=== PATIENT | male | born 1975 | race Caucasian/White ===

== ENCOUNTER 2023-01-22 21:02 | Observation (INO) | payer MEDICARE ==
[~2023-01-22 21:02] MED LIST: Iopamidol 370 76% 100 ML VIAL ONE
[2023-01-22 21:46] LABS: #Basophils 0.1 10x3/uL (0.0-0.2); #Eosinphils 0.2 10x3/uL (0.0-0.5); #Monocytes 0.7 10x3/uL (0.0-1.1); #Neutrophils 7.9 10x3/uL (1.5-8.4); %Basophils 0.7 % (0.0-2.0); %Eosinophils 1.5 % (0.0-6.0); %Lymphocytes 25.8 % (18.0-47.0); %Neutrophils 65.7 % (40.0-75.0); Hemoglobin 14.4 g/dL (13.5-17.5); Mean Corpuscular Hemoglobin 32.3 pg (27.0-33.0); Mean Corpuscular Volume 92.2 fl (81.2-95.1); Mean Platelet Volume 9.4 fl (7.4-10.4); Platelet Count 253 10x3/uL (150-450); RBC Distribution Width 13.2 % (11.5-14.5); Red Blood Cell (RBC) Count 4.46 10x6/uL (4.32-5.72)
[2023-01-22 21:59] LABS: ALT (SGPT) 43 U/L (8-55); AST (SGOT) 34 U/L (5-34); Albumin 4.9 g/dL (3.5-5.0); Alkaline Phosphatase 69 U/L (40-110); Anion Gap 17 mmol/L (10-20); BUN (Urea Nitrogen) 14 mg/dL (8.9-20.6); Bilirubin, Total 0.8 mg/dL (0.2-1.2); Calc. Creatinine Clearance 0 mL/min (70-130); Calcium 9.2 mg/dL (7.8-10.44); Carbon Dioxide 21 mmol/L (22-29); Chloride 105 mmol/L (98-107); Estimated GFR 85; Globulin 2.5 g/dL (2.4-3.5); Glucose 143 mg/dL (70-105); Protein, Total 7.4 g/dL (6.0-8.3); Sodium 139 mmol/L (136-145)
[2023-01-22] MEDS ORDERED: Morphine 4 MG/ML VIAL ONE (22:55)
[2023-01-22] MEDS ORDERED: Aspirin Chewable 81 MG TAB ONE (22:56)
[2023-01-22] MEDS ORDERED: Nitroglycerin 2% Ointment 1 INCH/1 GM Packet ONE (22:57)
[2023-01-23] MEDS ORDERED: Nitroglycerin 0.4 MG TAB (25 Tab Bottle) SL PRN (01:56)
[2023-01-23 02:43] LABS: Troponin I 0.016 ng/mL (< 0.028)
[2023-01-23 03:34] VITALS: BMI 27.1
[2023-01-23] MEDS ORDERED: Nitroglycerin 2% Ointment 1 INCH/1 GM Packet TOP SCH (06:00)
[2023-01-23] MEDS ORDERED: Aspirin 81 mg Enteric Coated Tablet ONE (08:20)
[2023-01-23] MEDS ORDERED: Cyclobenzaprine 10 MG TAB PO PRN (08:49)
[2023-01-23] MEDS ORDERED: Cyclobenzaprine 10 MG TAB ONE (08:56)
[2023-01-23] MEDS ORDERED: Aspirin Chewable 81 MG TAB PO SCH (09:00)
[2023-01-23] MEDS ORDERED: Cyclobenzaprine 10 MG TAB PO SCH (09:00)
[2023-01-23 09:20] VITALS: BP 99/75; TEMP 97.9
== END 2023-01-23 15:00 | disposition home or self-care (01) ==
LOC: CSHERS 21:02 → INTOOBSV 01-23 01:24 → CSHERHOLD 01-23 01:24
PROVIDERS: ADMIT Family Medicine; ATTEND Nurse Practitioner Family
DX: R07.2 Precordial pain (principal); R00.0 Tachycardia, unspecified; I10 Essential (primary) hypertension; B39.9 Histoplasmosis, unspecified; R73.9 Hyperglycemia, unspecified; Z98.1 Arthrodesis status; Z90.49 Acquired absence of other specified parts of digestive tract; Z98.890 Other specified postprocedural states; Z87.891 Personal history of nicotine dependence; Z88.8 Allergy status to other drugs, medicaments and biological substances; Z82.49 Family history of ischemic heart disease and other diseases of the circulatory system; Z79.82 Long term (current) use of aspirin
CPT/HCPCS: 71045; 71275; 80053; 80061; 83036; 84484 ×3; 85025; 93005 ×2; 93306; 96372; 96374; 99285; G0378; 36415; 93010; J1650; J2270; Q9967

== ENCOUNTER 2024-07-02 07:14 | Outpatient (CLI) | payer OTHER | END 2024-07-02 07:15 | disposition home or self-care (01) | LOC: CSHULT 07:14 | PROVIDERS: ATTEND Family Medicine | DX: R79.89 Other specified abnormal findings of blood chemistry (principal); K76.0 Fatty (change of) liver, not elsewhere classified; N28.1 Cyst of kidney, acquired | CPT/HCPCS: 76705 ==